=== PATIENT | male | born 1945 | race Two or more races ===

== ENCOUNTER 2019-11-05 17:57 | Emergency (ER) | payer MEDICARE, MEDICAID ==
[~2019-11-05] VITALS: Ht 162.6 cm; Wt 79.0 kg
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
[2019-11-05 18:18] VITALS: BP 144/78
--- NOTE | 2019-11-05 18:20 | NUR ---
PT TO RADIOLOGY.
--- NOTE | 2019-11-05 18:28 | NUR ---
PT BACK FROM RADIOLOGY.
--- NOTE | 2019-11-05 19:49 | NUR ---
Patient/Caregiver given discharge instructions and they have confirmed that they understand the instructions. Patient ambulatory with steady gait.
== END 2019-11-05 19:50 | disposition home or self-care (01) ==
LOC: ED 18:30
DX: S39.012A Strain of muscle, fascia and tendon of lower back, initial encounter (principal); I10 Essential (primary) hypertension; V49.40XA Driver injured in collision with unspecified motor vehicles in traffic accident, initial encounter; Y93.89 Activity, other specified; Y92.89 Other specified places as the place of occurrence of the external cause; Y99.8 Other external cause status
CPT/HCPCS: 72100; 99283